=== PATIENT | male | born 1995 | race African-American/Black ===

== ENCOUNTER → 2020-06-06 | Emergency (ER) | payer MEDICAID, OTHER ==
[~2020-06-06] VITALS: Ht 167.6 cm; Wt 72.6 kg
[2020-06-06 06:06] VITALS: BP 111/64
== END | disposition left against medical advice (07) ==
LOC: ER 03:17
DX: F41.9 Anxiety disorder, unspecified (principal); Z53.21 Procedure and treatment not carried out due to patient leaving prior to being seen by health care provider